=== PATIENT | female | born 1990 | race Caucasian/White ===

== ENCOUNTER 2020-02-15 07:29 | Inpatient (IN) | payer BC ==
[~2020-02-15] VITALS: Ht 160 cm; Wt 79.5 kg
[2020-02-15] MEDS ORDERED: NEWBORN KIT ONE (08:25)
[2020-02-15] MEDS ORDERED: LIDOCAINE 1%, 20ML ONE (08:25)
[2020-02-15] MEDS ORDERED: OXYTOCIN 30U/ 0.9% NaCL 500ML 500 ML ONE (08:25)
[2020-02-15] MEDS ORDERED: MISOPROSTOL 200 MCG TABLET ONE (08:25)
[2020-02-15] MEDS ORDERED: TERBUTALINE 1 MG/ML, 1ML IVPush PRN (08:30)
[2020-02-15] MEDS ORDERED: FENTANYL PF 100 MCG/2ML IVPush PRN (08:30)
[2020-02-15] MEDS ORDERED: OXYTOCIN 30U/ 0.9% NaCL 500ML 500 ML IV PRN (08:30)
[2020-02-15] MEDS ORDERED: OXYTOCIN 30U/ 0.9% NaCL 500ML 500 ML IV ONE (08:30)
[2020-02-15] MEDS ORDERED: CALCIUM CARBONATE 500 MG TAB.CHEW PO PRN (08:30)
[2020-02-15] MEDS ORDERED: ONDANSETRON 2MG/ML, 2ML IVPush PRN (08:30)
[2020-02-15] MEDS ORDERED: TERBUTALINE 1 MG/ML, 1ML SQ PRN (08:30)
[2020-02-15] MEDS ORDERED: FENTANYL PF 100 MCG/2ML IV PRN (08:30)
[2020-02-15] MEDS ORDERED: D5%-LACTATED RINGERS 1,000 ML IV SCH (08:30)
[2020-02-15 08:56] LABS: BASOPHILS % (AUTO) 0 % (0-1); EOSINOPHILS % (AUTO) 2 % (1-7); LYMPHOCYTES % (AUTO) 16 % (22-44); MEAN CORPUSCULAR HEMOGLOBIN 31.3 pg (27.0-34.8); MEAN CORPUSCULAR HGB CONC 34.3 g/dL (32.4-35.8); MEAN PLATELET VOLUME 8.5 fL (7.4-10.4); MONOCYTES % (AUTO) 5 % (2-9); NEUTROPHILS % (AUTO) 77 % (42-75); PLATELET COUNT 241 x10^3/uL (130-400); RED BLOOD COUNT 4.44 x10^6/uL (3.82-5.3)
[2020-02-15 08:57] LABS: MD NO
[2020-02-15] MEDS: LACTATED RINGERS 1,000 ML IV SCH ×2 (09:05→11:31)
[2020-02-15 09:26] VITALS: BP 127/62
[2020-02-15] MEDS ORDERED: FENTANYL PF 100 MCG/2ML ONE (11:16)
[2020-02-15] MEDS ORDERED: ONDANSETRON 2MG/ML, 2ML ONE (11:16)
[2020-02-15] MEDS ORDERED: NALOXONE 0.4 MG/ML, 1ML IVPush PRN (11:30)
[2020-02-15] MEDS ORDERED: FENTANYL/BUPIV./NS/PF 250 ML EPIDCONT SCH (11:30)
[2020-02-15] MEDS ORDERED: EPHEDRINE 50 MG/ML, 1ML IVPush PRN (11:30)
[2020-02-15] MEDS ORDERED: LACTATED RINGERS 1,000 ML IVBOLUS PRN (11:30)
[2020-02-15] MEDS ORDERED: LACTATED RINGERS 1,000 ML IV SCH (11:30)
[2020-02-15] MEDS ORDERED: FENTANYL/BUPIV./NS/PF 250 ML EPIDCONT ONE (11:36)
[2020-02-15] MEDS ORDERED: BUPIVACAINE 0.25% ONE (12:04)
[2020-02-15] MEDS ORDERED: ACETAMINOPHEN 500 MG TABLET ONE ×2 (15:16→15:17)
[2020-02-15] MEDS: ACETAMINOPHEN 500 MG TABLET PO PRN (15:19)
[2020-02-15] MEDS ORDERED: CEFAZOLIN 2,000 MG in SODIUM CHLORIDE 0.9% 50 ML IV SCH (20:00)
[2020-02-15] MEDS: CEFAZOLIN PMX 2GM/50ML 50 ML IVPB SCH (20:09)
[2020-02-16] MEDS ORDERED: ACETAMINOPHEN 500 MG TABLET ONE (01:45)
[2020-02-16] MEDS: ACETAMINOPHEN 500 MG TABLET PO PRN ×3 (01:49→23:45)
[2020-02-16] MEDS: CEFAZOLIN PMX 2GM/50ML 50 ML IVPB SCH (01:49)
[2020-02-16] MEDS ORDERED: METOCLOPRAMIDE 5 MG/ML, 2ML ONE ×2 (05:23→05:54)
[2020-02-16] MEDS ORDERED: SODIUM CITRATE/CITRIC ACID 15 ML UDC ONE (05:23)
[2020-02-16] MEDS ORDERED: OXYTOCIN 10 UNITS/ML, 1ML ONE (05:28)
[2020-02-16] MEDS ORDERED: EPHEDRINE 50 MG/ML, 1ML ONE ×2 (05:28→05:54)
[2020-02-16] MEDS ORDERED: DEXAMETHASONE 4 MG/ML, 1ML ONE (05:28)
[2020-02-16] MEDS ORDERED: PROPOFOL 10 MG/ML, 20ML ONE (05:28)
[2020-02-16] MEDS ORDERED: CEFAZOLIN 1,000 MG ONE (05:28)
[2020-02-16] MEDS ORDERED: PHENYLEPHRINE 10 MG/ML ONE ×2 (05:28→05:54)
[2020-02-16] MEDS ORDERED: SUCCINYLCHOLINE 20 MG/ML, 10ML ONE (05:28)
[2020-02-16] MEDS ORDERED: ONDANSETRON 2MG/ML, 2ML ONE ×2 (05:28→09:02)
[2020-02-16] MEDS ORDERED: KETOROLAC 30 MG/1 ML ONE (05:28)
[2020-02-16] MEDS ORDERED: EPHEDRINE 50 MG/ML, 1ML IVPush PRN (05:30)
[2020-02-16] MEDS ORDERED: ONDANSETRON 2MG/ML, 2ML IVPush ONE (05:30)
[2020-02-16] MEDS ORDERED: HYDROmorphone 2 MG/ML, 1ML IVPush PRN (05:30)
[2020-02-16] MEDS ORDERED: HYDROcodone/APAP 7.5-325MG/15ML UDC PO PRN (05:30)
[2020-02-16] MEDS ORDERED: OXYcodone 5 MG/5 ML ORAL.SOL UDC PO PRN (05:30)
[2020-02-16] MEDS ORDERED: MEPERIDINE/PF 25MG/0.5ML IVPush PRN (05:30)
[2020-02-16] MEDS ORDERED: CALCIUM CARBONATE 500 MG TAB.CHEW PO PRN (05:30)
[2020-02-16] MEDS ORDERED: MIDAZOLAM 1 MG/ML, 2ML IV PRN (05:30)
[2020-02-16] MEDS ORDERED: METOCLOPRAMIDE 5 MG/ML, 2ML IV ONE (05:30)
[2020-02-16] MEDS ORDERED: SODIUM CITRATE/CITRIC ACID 30 ML UDC PO ONE (05:30)
[2020-02-16] MEDS ORDERED: LABETALOL 5MG/ML, 20ML IV PRN (05:30)
[2020-02-16] MEDS ORDERED: CEFAZOLIN PMX 1GM/50ML 50 ML IVPB ONE (05:30)
[2020-02-16] MEDS ORDERED: FENTANYL PF 100 MCG/2ML IV PRN (05:30)
[2020-02-16] MEDS ORDERED: AZITHROMYCIN 500 MG in SODIUM CHLORIDE 0.9% 250 ML IV ONE (05:30)
[2020-02-16] MEDS ORDERED: ALBUTEROL SULFATE 2.5 MG/3 ML NPPB PRN (05:30)
[2020-02-16] MEDS ORDERED: PROMETHAZINE 25 MG/ML, 1ML IV PRN (05:30)
[2020-02-16] MEDS ORDERED: hydrALAzine 20 MG/ML, 1ML IV PRN (05:30)
[2020-02-16] MEDS ORDERED: FENTANYL PF 100 MCG/2ML ONE ×2 (05:31→05:32)
[2020-02-16] MEDS ORDERED: SODIUM CITRATE/CITRIC ACID 30 ML UDC ONE (05:54)
[2020-02-16] MEDS ORDERED: morphine SULFATE/PF 0.5 MG/ML, 10ML ONE (06:22)
[2020-02-16] MEDS ORDERED: OXYcodone/APAP 5/325MG TABLET PO PRN ×2 (07:30→14:00)
[2020-02-16] MEDS ORDERED: morphine SULFATE 10 MG/ML, 1ML IM PRN (07:30)
[2020-02-16] MEDS: LACTATED RINGERS 1,000 ML IV SCH ×5 (07:30→23:30)
[2020-02-16] MEDS ORDERED: MORPHINE SULFATE 4 MG/ML, 1ML IVPush PRN (07:30)
[2020-02-16] MEDS ORDERED: IBUPROFEN 600 MG TABLET PO PRN (07:30)
[2020-02-16] MEDS ORDERED: ONDANSETRON 2MG/ML, 2ML IV PRN (07:30)
[2020-02-16] MEDS ORDERED: MISOPROSTOL 200 MCG TABLET PR PRN (07:30)
[2020-02-16] MEDS ORDERED: OXYTOCIN 30U/ 0.9% NaCL 500ML 500 ML ONE (07:35)
[2020-02-16] MEDS ORDERED: OXYcodone 5 MG/5 ML ORAL.SOL UDC ONE ×2 (07:35→07:37)
[2020-02-16] MEDS ORDERED: HYDROmorphone 2 MG/ML, 1ML ONE (07:35)
[2020-02-16] MEDS: OXYTOCIN 30U/ 0.9% NaCL 500ML 500 ML IV SCH ×2 (07:50→17:28)
[2020-02-16] MEDS: PRENATAL VIT/IRON/FA 1 EACH TABLET PO SCH (09:00)
[2020-02-16 09:15] VITALS: BP 105/76
[2020-02-16] MEDS: KETOROLAC 30 MG/1 ML IV SCH ×2 (12:30→19:27)
[2020-02-16] MEDS: OXYcodone IR 5MG TABLET PO PRN ×3 (12:32→23:45)
[2020-02-16 12:35] VITALS: BP 109/69
[2020-02-16] MEDS ORDERED: ONDANSETRON 2MG/ML, 2ML IVPush PRN (14:00)
[2020-02-16] MEDS ORDERED: NALOXONE 0.4 MG/ML, 1ML IV PRN ×3 (14:00)
[2020-02-16] MEDS ORDERED: HYDROmorphone 1 MG/ML, 1ML INJ IVPush PRN (14:00)
[2020-02-16] MEDS ORDERED: DIPHENHYDRAMINE 50 MG/ML, 1ML IV PRN (14:00)
[2020-02-16 14:33] LABS: MEAN CORPUSCULAR HEMOGLOBIN 31.9 pg (27.0-34.8); MEAN CORPUSCULAR HGB CONC 34.8 g/dL (32.4-35.8); MEAN PLATELET VOLUME 8.6 fL (7.4-10.4); PLATELET COUNT 198 x10^3/uL (130-400); RED BLOOD COUNT 3.47 x10^6/uL (3.82-5.3); RED CELL DISTRIBUTION WIDTH 12.9 % (9.6-15.2)
[2020-02-16 15:02] LABS: MD YES
[2020-02-16 15:04] LABS: <RBC MORPHOLOGY> NORMAL; BAND#(MANUAL) 1.37 x10^3/uL; BANDS%(MANUAL) 7 % (0-7); LYMPH#(MANUAL) 1.18 x10^3/uL (1-3.4); LYMPHS% (MANUAL) 6 % (22-44); MONOS% (MANUAL) 1 % (2-9); SEG#(MANUAL) 16.86 x10^3/uL (1.8-6.8); SEGS% (MANUAL) 86 % (42-75)
[2020-02-16 15:05] LABS: <PLATELET ESTIMATE> ADEQUATE; <PLT MORPHOLOGY> NORMAL PLT MORPH
[2020-02-16 16:05] VITALS: BP 101/64
[2020-02-16] MEDS: DOCUSATE 100 MG CAPSULE PO PRN (19:27)
[2020-02-16 19:30] VITALS: BP 106/70
[2020-02-16 23:45] VITALS: BP 104/67
[2020-02-17] MEDS: KETOROLAC 30 MG/1 ML IV SCH ×2 (01:41→08:05)
[2020-02-17] MEDS: LACTATED RINGERS 1,000 ML IV SCH ×6 (03:30→23:30)
[2020-02-17] MEDS: OXYTOCIN 30U/ 0.9% NaCL 500ML 500 ML IV SCH ×3 (03:30→23:30)
[2020-02-17 04:15] VITALS: BP 103/67
[2020-02-17] MEDS ORDERED: KETOROLAC 30 MG/1 ML ONE (07:33)
[2020-02-17] MEDS: PRENATAL VIT/IRON/FA 1 EACH TABLET PO SCH (08:05)
[2020-02-17] MEDS: SIMETHICONE 80 MG CHEW TAB PO PRN ×2 (08:05→15:35)
[2020-02-17] MEDS: OXYcodone IR 5MG TABLET PO PRN ×4 (08:05→23:04)
[2020-02-17] MEDS: DOCUSATE 100 MG CAPSULE PO PRN (08:05)
[2020-02-17 08:10] VITALS: BP 106/70
[2020-02-17] MEDS: ACETAMINOPHEN 500 MG TABLET PO PRN (17:52)
[2020-02-17 19:20] VITALS: BP 102/60
[2020-02-18] MEDS: ACETAMINOPHEN 500 MG TABLET PO PRN ×3 (00:02→14:36)
[2020-02-18 07:30] VITALS: BP 111/75
[2020-02-18] MEDS: OXYcodone IR 5MG TABLET PO PRN ×2 (07:39→12:36)
[2020-02-18] MEDS: DOCUSATE 100 MG CAPSULE PO PRN (07:40)
[2020-02-18] MEDS: SIMETHICONE 80 MG CHEW TAB PO PRN ×2 (07:40→14:36)
[2020-02-18] MEDS: PRENATAL VIT/IRON/FA 1 EACH TABLET PO SCH (07:41)
[2020-02-18] MEDS ORDERED: OXYC-302 PO (14:09)
[2020-02-18] MEDS ORDERED: IBUP-1222 PO (14:09)
== END 2020-02-18 15:25 | disposition home or self-care (01) | DRG 788 ==
LOC: LDOP 07:29 → LDIP 08:21 → 2NW 02-16 09:15
PROVIDERS: ADMIT Obstetrics & Gynecology; ATTEND Obstetrics & Gynecology
PROC: 10D00Z1 Extraction of Products of Conception, Low, Open Approach (ICD-10-PCS; principal; 2020-02-16)
DX: O76 Abnormality in fetal heart rate and rhythm complicating labor and delivery (principal); O32.4XX0 Maternal care for high head at term, not applicable or unspecified; O34.211 Maternal care for low transverse scar from previous cesarean delivery; O42.92 Full-term premature rupture of membranes, unspecified as to length of time between rupture and onset of labor; O77.0 Labor and delivery complicated by meconium in amniotic fluid; Z20.822 Contact with and (suspected) exposure to COVID-19; Z37.0 Single live birth; Z3A.40 40 weeks gestation of pregnancy
CPT/HCPCS: 36415; J7121; 84112; 85025; 86592; 86850; 86900; 87635; G0378; J0690; J1100; J1170; J1885; J2274; J2405; J2704; J3010; J0330; J2370; J2590; J2765; J7120